=== PATIENT | female | born 1980 | race Two or more races ===

== ENCOUNTER 2018-12-24 19:52 | Emergency (ER) | payer MEDICAID ==
[~2018-12-24] VITALS: Ht 154.9 cm; Wt 86.6 kg
[2018-12-24] MEDS ORDERED: ALBUTEROL SULF 2.5 MG/0.5ML(0.5%) NEB SOLN NEB ONE (20:15)
[2018-12-24] MEDS ORDERED: IPRATROPIUM BROM 0.5 MG/2.5ML INH SOL NEB ONE (20:15)
[2018-12-24 20:28] VITALS: BP 151/77
== END 2018-12-24 21:37 | disposition left against medical advice (07) ==
LOC: ER 19:58
DX: O26.893 Other specified pregnancy related conditions, third trimester (principal); R05 Cough; Z53.21 Procedure and treatment not carried out due to patient leaving prior to being seen by health care provider; Z3A.30 30 weeks gestation of pregnancy
CPT/HCPCS: 94640; J7611; J7644